=== PATIENT | female | born 1950 | race Caucasian/White ===

== ENCOUNTER 2019-03-18 20:52 | Emergency (ER) | payer OTHER, MEDICAID ==
[~2019-03-18] VITALS: Ht 152.4 cm; Wt 77.1 kg
[2019-03-18 22:20] LABS: BASOPHILS % (AUTO) 0.7 % (0.0-2.0); EOSINOPHILS % (AUTO) 1.6 % (0.0-6.0); HEMATOCRIT 38 % (33-45); HEMOGLOBIN 13.2 g/dL (11.5-14.8); LYMPHOCYTES # (AUTO) 1.4 /CMM (0.8-4.8); LYMPHOCYTES % (AUTO) 20.3 % (20.0-44.0); MEAN CORPUSCULAR HGB CONC 35 g/dl (31.0-36.0); MEAN CORPUSCULAR VOLUME 89 fL (82-100); MONOCYTES # (AUTO) 0.6 /CMM (0.1-1.30); MONOCYTES % (AUTO) 8.7 % (2.0-12.0); NEUTROPHILS # (AUTO) 4.7 /CMM (1.8-8.9); NEUTROPHILS % (AUTO) 68.7 % (43.0-81.0); PLATELET COUNT (AUTO) 312 /CMM (150-450); WHITE BLOOD COUNT (AUTO) 6.8 K/uL (4.3-11.0)
--- NOTE | 2019-03-18 22:21 | NUR ---
TECH AT BEDSIDE FOR EKG
[2019-03-18] MEDS ORDERED: MORPHINE SULFATE INJ 2 MG/ML DISP.SYRIN IV ONE (22:30)
[2019-03-18] MEDS ORDERED: IV NS 0.9% 500 ML BAG IV ONE (22:30)
[2019-03-18] MEDS ORDERED: PANTOPRAZOLE 40 MG VIAL IV ONE (22:30)
[2019-03-18] MEDS ORDERED: ONDANSETRON HCL/PF 4 MG/2 ML VIAL IVP ONE (22:30)
--- NOTE | 2019-03-18 22:32 | NUR ---
PT TAKEN TO RADIOLOGY FOR CT VIA [facility]
[2019-03-18 22:33] LABS: ALANINE AMINOTRANSFERASE 52 U/L (12-78); ALBUMIN 3.7 g/dL (3.4-5.0); ALKALINE PHOSPHATASE 79 U/L (46-116); ASPARTATE AMINOTRANSFERASE 39 U/L (15-37); BILIRUBIN,DIRECT 0.4 mg/dL (0.0-0.2); BILIRUBIN,TOTAL 1.1 mg/dL (0.2-1.0); CALCIUM, SERUM 9.8 mg/dL (8.5-10.1); CARBON DIOXIDE 32 mmol/L (21-32); CHLORIDE 99 mmol/L (98-107); CREATININE 2.7 mg/dL (0.6-1.3); GLUCOSE 110 mg/dL (74-106); LIPASE 232 U/L (73-393); SODIUM SERUM 140 mmol/L (136-145); TOTAL PROTEIN, SERUM 7.7 g/dL (6.4-8.2); UREA NITROGEN, BLOOD 38 mg/dL (7-18)
[2019-03-18 22:35] LABS: POTASSIUM 2.7 mmol/L (3.5-5.1)
[2019-03-18 22:37] LABS: APPEARANCE,URINE Cloudy (CLEAR); BILIRUBIN,URINE MODERATE (NEGATIVE); BLOOD, URINE Moderate Ery/uL (NEGATIVE); COLOR,URINE Dark (YELLOW); KETONES,URINE Trace (NEGATIVE); LEUKOCYTE ESTERASE ,URINE Large (NEGATIVE); NITRITE, URINE Negative (NEGATIVE); PH,URINE 5.5 (5.0-8.0); PROTEIN,URINE 100 mg/dl (NEGATIVE); UGLUCOSE Negative (NEGATIVE)
[2019-03-18 22:45] LABS: BACTERIA,URINE Few /HPF (None Seen); SQUAMOUS EPITHELIAL CELL,UR Rare /HPF (None Seen); WBC,URINE TOO NUMEROUS TO COUN /HPF (0-3)
--- NOTE | 2019-03-18 22:45 | NUR ---
PT RETURNED FROM RADIOLOGY VIA [employer]. PT TOLERATED WELL.
[2019-03-18] MEDS ORDERED: PANTOPRAZOLE 40 MG VIAL ONE (22:46)
[2019-03-18] MEDS ORDERED: MORPHINE SULFATE INJ 4 MG/ML DISP.SYRIN ONE (22:46)
[2019-03-18] MEDS ORDERED: ONDANSETRON HCL/PF 4 MG/2 ML VIAL ONE (22:46)
[2019-03-18] MEDS ORDERED: POTASSIUM CHLORIDE 20 MEQ TAB.PRT.SR PO ONE ×2 (23:00→23:12)
[2019-03-18] MEDS ORDERED: POTASSIUM CL. PREMIX PERIPHER. 100 ML ONE (23:11)
[2019-03-18] MEDS: POTASSIUM CL. PREMIX PERIPHER. 50 ML IV SCH (23:17)
--- NOTE | 2019-03-18 23:17 | NUR ---
ADDENDUM: Intravenous End Time Documentation: # 1 KCL 10 MEQ IVPB - start time: 2317 ; end time : 2417 ; Site: [facility] PIV # 20 ; Port # 1 03/19/2019 # 2 KCL 10 MEQ IVPB - start time: 2417 ; end time : 0117 ; Site: [facility] PIV # 20 ; Port # 1
[2019-03-18 23:33] VITALS: BP 108/72
[2019-03-19] MEDS: POTASSIUM CL. PREMIX PERIPHER. 50 ML IV SCH (00:22)
--- NOTE | 2019-03-19 01:38 | NUR ---
IV removed. Catheter intact and site benign. Pressure and 4x4 applied to site. No bleeding noted.Patient discharged to home in stable condition. Written and verbal after care instructions given. Patient verbalizes understanding of instruction. PT AWAITING AUDIO VISUAL AIDS DIRECTOR FROM FAMILY.
== END 2019-03-19 01:53 | disposition home or self-care (01) ==
LOC: ER 20:59
DX: R10.13 Epigastric pain (principal); I10 Essential (primary) hypertension; R11.2 Nausea with vomiting, unspecified
CPT/HCPCS: 36415; 71045; 74176; 80048; 80076; 81001; 83605; 83690; 84484; 85025; 85730; 87077; 87086; 87186; 93005; 96361 ×2; 96374; 96375; 99284; C9113; J2270; J2405; J3480; J7030; J7040; 81000-TC